=== PATIENT | male | born 1945 | race Caucasian/White ===

== ENCOUNTER → 2018-09-23 | Day surgery (SDC) | payer MEDICARE, BC ==
[2018-09-16 13:00] LABS: BASOPHILS # (AUTO) 0.1 (0.0-0.1); BASOPHILS % 0.7 % (0.0-1.0); EOSINOPHILS # (AUTO) 0.2 (0.0-0.4); EOSINOPHILS % 2.7 % (0.0-6.0); HEMATOCRIT 43.4 % (38.2-49.6); HEMOGLOBIN 14.3 g/dL (14.0-18.0); LYMPHOCYTES # (AUTO) 1.9 (1.0-3.2); LYMPHOCYTES % 22.4 % (18.0-39.1); MEAN CORPUSCULAR HEMOGLOBIN 29.6 pg (28-32); MEAN CORPUSCULAR HGB CONC 32.9 g/dL (31-35); MEAN CORPUSCULAR VOLUME 89.9 fL (81-99); MONOCYTES # (AUTO) 0.9 (0.2-0.8); NEUTROPHILS # (AUTO) 5.4 (2.1-6.9); NEUTROPHILS % 63.5 % (38.7-80.0); PLATELET COUNT 216 x10e3/uL (140-360); RED BLOOD COUNT 4.83 x10e6/uL (4.3-5.7); RED CELL DISTRIBUTION WIDTH 12.2 % (11.7-14.4)
[2018-09-16 13:09] LABS: ANION GAP 13.1 mmol/L (8-16); BLOOD UREA NITROGEN 21 mg/dL (7-26); BUN/CREATININE RATIO 18 (6-25); CALCIUM 9.1 mg/dL (8.4-10.2); CARBON DIOXIDE 27 mmol/L (22-29); CHLORIDE 102 mmol/L (98-107); CREATININE, SERUM 1.18 mg/dL (0.72-1.25); EST GLOMERULAR FILTRATION RATE > 60 ML/MIN (60-); GLUCOSE 89 mg/dL (74-118); POTASSIUM 4.1 mmol/L (3.5-5.1); SODIUM 138 mmol/L (136-145)
--- NOTE | 2018-09-16 13:39 | Diagnostic Imaging Report ---
EXAMINATION: CHEST 2 VIEWS INDICATION: Preop for cysto surgery COMPARISON: None FINDINGS: TUBES and LINES: Left anterior chest dual lead cardiac device. LUNGS: Lungs are well inflated. Lungs are clear. There is no evidence of pneumonia or pulmonary edema. PLEURA: No pleural effusion or pneumothorax. HEART AND MEDIASTINUM: The cardiomediastinal silhouette is unremarkable. BONES AND SOFT TISSUES: No acute osseous lesion. Soft tissues are unremarkable. UPPER ABDOMEN: No free air under the diaphragm. IMPRESSION: No acute thoracic abnormality. Signed by: Dr. Blayne Strange M.D. on 09/16/2018 1:36 PM
[~2018-09-23] MED LIST: ADVAIR 100-501 EACH; ASCORBIC ACID500 MG PO; AZELASTINE137 MCG/0.; BACITRACIN 50,000 UNIT VIAL ONE; BUPIVACAINE 0.5%/EPI 30 ML SDV INJ ONE; CEFTRIAXONE SOD 1 GM VIAL ONE; DEXAMETHASONE SOD PHOS INJ 4 MG/ML VIAL ONE; FENTANYL CITRATE/PF 100MCG/2 ML INJ ONE; HYDROCODONE/APAP 5MG-325MG TAB ONE; LIDOCAINE HCL 2% LOCAL INJ 5 ML SDV VIAL INJ ONE; METOPROLOL SUCC50 MG PO; MIDAZOLAM HCL 2 MG/2 ML VIAL ONE; MORPHINE SULFATE 2 MG/ML SYR ONE; MULTIVITAMINS1 EAC6; ONDANSETRON HCL INJ 2 MG/ML VIAL ONE; PANTOPRAZOLE SO40 MG PO; PRADAXA150 MG; PROPAFENONE HC325 MG PO; PROPOFOL IV EMULSION 10 MG/ML 20 ML VIAL ONE; SEVOFLURANE INHAL SOLN 250 ML PEN BTL ONE; ZANTAC150 MG; ZETIA10 MG PO; ZOLPIDEM TARTRA10 MG PO; ZYRTEC10 M3
--- OUTSIDE RECORDS SUMMARY | 2018-09-23 11:11 | XMS REPORT | Continuity of Care Document ---
Author Author [facility] Interface Address Unknown Phone Unavailable Problems Problem Status Onset Date Classification Date Reported Comments Source COLON CANCER SCREENING Active 03/06/2017 [facility] Atrial fibrillation Resolved Problem 05/10/2017 [facility] [place] (<span ID="[id number]">Confirmed</span>) Resolved Problem 05/10/2017 [facility] Heartburn symptom Active Problem 05/10/2017 [facility] Inguinal hernia Active Problem 05/10/2017 [facility] Prostate cancer<sup>1</sup> Resolved Problem 05/10/20172002 [facility] Medications Medication Details Route Status Patient Instructions Ordering Provider Order Date Source Allergies, Adverse Reactions, Alerts Substance Category Reaction Severity Reaction type Status Date Reported Comments Source Immunizations Immunization Date Given Site Status Last Updated Comments Source Results Order Name Results Value Reference Range Date Interpretation Comments Source Vital Signs Vital Sign Value Date Comments Source Encounters Location Location Details Encounter Type Encounter Number Reason For Visit Attending Provider ADM Date DC Date Status Source [facility] Bed[facility] Outpatient [id number] Farida Estradaoff 05/07/2017 05/07/2017 [facility] Procedures Procedure Code Date Perfomer Comments Source Open repair of inguinal hernia<sup>1</sup> [id number] 12/24/2016 OPEN LEFT INGUINAL HERNIA REPAIR WITH MESH [facility] Cataract extraction and insertion of intraocular lens [id number] [facility] Hand reconstruction [id number] [facility] Hydrocelectomy [id number] [facility] Inguinal hernioplasty<sup>2</sup> [id number] right [facility] Prostatectomy [id number] [facility] Vitrectomy [id number] [facility]
--- OUTSIDE RECORDS SUMMARY | 2018-09-23 11:11 | XMS REPORT | Clinical Summary ---
Author Author RADHA [employer] [facility] Organization [facility] Address Unknown Phone Unavailable Care Team Providers Care Flute Teacher Name Role Phone Sharpless PCP Allergies No Known Allergies Medications End Date Status Medication Sig Dispensed Refills Start Date Active ezetimibe-simvastatin Take 1 tablet 0 (VYTORIN) 10-40 mg per by mouth tablet nightly. Active propafenone (RYTHMOL) 150 Take 150 mg 0 MG tablet by mouth every 8 (eight) hours. Active azelastine (ASTELIN) 137 1 spray by 0 mcg (0.1 %) nasal spray Nasal route 2 (two) times daily Use in each nostril as directed . Active pantoprazole (PROTONIX) Take 40 mg by 0 40 MG tablet mouth daily. Active fluticasone (FLOVENT Inhale 1 puff 0 DISKUS) 50 mcg/actuation by mouth via diskus inhaler inhaler 2 (two) times daily. Active zolpidem (AMBIEN) 10 mg Take 10 mg by 0 tablet mouth every night as needed for Insomnia. Active ranitidine (ZANTAC) 150 Take 150 mg 0 MG capsule by mouth 2 (two) times daily. Active cetirizine (ZYRTEC) 10 MG Take 10 mg by 0 tablet mouth daily. Active ascorbic acid, vitamin C, Take 1,000 mg 0 (VITAMIN C) 1000 MG by mouth tablet daily. Active vitamin A 53294 UNIT Take 10,000 0 capsule Units by mouth daily. Active multivitamin capsule Take 1 0 capsule by mouth daily. Active metoprolol (TOPROL-XL) 50 Take 1 tablet 30 tablet 0 03/23/201 MG 24 hr tablet (50 mg total) 8 by mouth daily. Active rivaroxaban (XARELTO) 20 Take 1 tablet 30 tablet 0 03/25/201 mg Tab tablet (20 mg total) 8 by mouth daily with dinner Start on 01/31. Active acetaminophen-codeine Take 1 tablet 20 tablet 0 (TYLENOL #3) 300-30 mg by mouth 8 per tablet every 6 (six) hours as needed for Pain. Max Daily Amount: 4 tablets 01/29/2018 Discontinued metoprolol (TOPROL-XL) 25 Take 25 mg by 0 MG 24 hr tablet mouth daily. Active Problems Problem Noted Date Symptomatic sinus bradycardia 01/27/2018 Encounters Care Team Description Date Type Specialty Mago Madrigal MD Severe sinus bradycardia 03/02/2018 Hospital Encounter Mago Madrigal MD Severe sinus bradycardia (Primary Dx) 03/02/2018 Outside Orders Mago Madrigal MD PACEMAKER GENERATOR - INSERTION W/ EXISTING LEAD (SINGLE) 01/29/2018 Surgery Scottie Moore MD 01/29/2018 Anesthesia Event Floresita Muniz MD Yoon, Alyssa Hyunna, MD Symptomatic sinus bradycardia (Primary Dx); Intermittent lightheadedness; Sinus pause 01/27/2018 Hospital Cardiology - Encounter 01/29/2018 01/27/2018 Orders Only General Internal Medicine after 09/22/2017 Social History Date Tobacco Use Types Packs/Day Years Used Former Smoker Smokeless Tobacco: Never Used Alcohol Use Drinks/Week oz/Week Comments No Sex Assigned at Date Recorded Not on file Industry Job Start Date Occupation Not on file Not on file Not on file Travel End Travel History Travel Start No recent travel history available. Last Filed Vital Signs Time Taken Vital Sign Reading 01/29/2018 10:11 AM CDT Blood Pressure 128/59 01/29/2018 11:06 AM CDT Pulse 64 01/29/2018 5:56 AM CDT Temperature 35.9 C (96.6 F) 01/29/2018 11:06 AM CDT Respiratory Rate 18 01/29/2018 11:06 AM CDT Oxygen Saturation 96% 01/28/2018 8:27 AM CDT Inhaled Oxygen 21% Concentration 01/27/2018 6:49 PM CDT Weight 82.1 kg (181 lb) 01/27/2018 6:49 PM CDT Height 175.3 cm (5' 9") 01/27/2018 6:49 PM CDT Body Mass Index 26.73 Plan of Treatment Not on file Implants Device Identifier Shelf Expiration Date Model / Serial / Lot Implanted Type Area Manufactur er 10/09/2019 [id number] / [id number] / Lead Pacemkr Capsur Novus 52x1 Pacemaker N/A: Heart [employer]: [id number] - [id number] Lead CARD Implanted: Qty: 1 on 01/29/2018 by RHY:Mago Ruvalcaba MD E MGT 10/23/2019 [id number] / [id number] / Lead Pacemkr Capsur Novus 45x1 Pacemaker N/A: Heart [employer]: [id number] - [id number] Lead CARD Implanted: Qty: 1 on 01/29/2018 by RHY:Mago Ruvalcaba MD E MGT 03/06/2019 [id number] / [id number] / Jenna Xt Dr Yani Surescan Pacemakers N/A: Chest [employer] Implanted: Qty: 1 on 01/29/2018 by Mago Madrigal MD Procedures Comments Procedure Name Priority Date/Time Associated Diagnosis ARRYTHMIA IMPLANT REPORT 06/30/2018 - SCAN 8:31 AM CDT XR CHEST 2 VIEWS Routine 03/02/2018 Severe sinus bradycardia 11:57 AM CDT CARDIAC CATH REPORT - 02/03/2018 SCAN 8:30 PM CDT ARRYTHMIA IMPLANT REPORT 02/01/2018 - SCAN 1:50 PM CDT RHYTHM STRIP - SCAN 02/01/2018 1:50 PM CDT XR CHEST 1 VIEW STAT 01/29/2018 PORTABLE/BEDSIDE 10:31 AM CDT PACEMAKER GENERATOR - 01/29/2018 chest pain INSERTION W/ EXISTING 7:30 AM CDT LEAD (SINGLE) CBC W/PLT COUNT & AUTO Routine 01/29/2018 DIFFERENTIAL 4:59 AM CDT MAGNESIUM Routine 01/29/2018 4:59 AM CDT CBC W/PLT COUNT & AUTO Routine 01/29/2018 DIFFERENTIAL 4:59 AM CDT BASIC METABOLIC PANEL (7) Routine 01/29/2018 4:59 AM CDT CBC W/PLT COUNT & AUTO Routine 01/28/2018 DIFFERENTIAL 10:19 AM CDT CBC W/PLT COUNT & AUTO Routine 01/28/2018 DIFFERENTIAL 10:19 AM CDT BASIC METABOLIC PANEL (7) Routine 01/28/2018 10:19 AM CDT TSH/FREE T4 IF INDICATED Routine 01/28/2018 5:56 AM CDT MAGNESIUM Routine 01/28/2018 5:56 AM CDT ED ECG INTERPRETATION Routine 01/27/2018 10:08 PM CDT XR CHEST 1 VIEW STAT 01/27/2018 PORTABLE/BEDSIDE 9:04 PM CDT CBC W/PLT COUNT & AUTO STAT 01/27/2018 DIFFERENTIAL 8:40 PM CDT B-TYPE NATRIURETIC FACTOR STAT 01/27/2018 (BNP) 8:40 PM CDT PT/APTT STAT 01/27/2018 8:40 PM CDT CBC W/PLT COUNT & AUTO STAT 01/27/2018 DIFFERENTIAL 8:40 PM CDT TROPONIN I STAT 01/27/2018 8:40 PM CDT MAGNESIUM STAT 01/27/2018 8:40 PM CDT BASIC METABOLIC PANEL (7) STAT 01/27/2018 8:40 PM CDT ECG 12-LEAD Routine 01/27/2018 6:47 PM CDT Procedure Note - Interface, External Ris In - 01/27/2018 8:37 PM CDT Ventricula r Rate 59 BPM Atrial Rate 59 BPM P-R Interval 212 ms QRS Duration 92 ms Q-T Interval 406 ms QTC Calculatio n(Bazett) [address] -[address] 46 degrees Sinus bradycardi a with 1st degree A-V block Otherwise normal ECG No previous ECGs available ECG 12-LEAD STAT 01/27/2018 6:47 PM CDT after 09/22/2017 Results * ARRYTHMIA IMPLANT REPORT - SCAN (06/30/2018 8:31 AM CDT) Only the most recent of 2 results within the time period is included. Narrative Performed At * XR Chest 2 Views (03/02/2018 11:57 AM CDT) Narrative Performed At FINAL REPORT [facility] PA and Lateral views of the chest dated 03/02/2018 COMPARISON: January 29, 2018 Clinical information: R00.1 Comment:Heart is normal in size. AICD remains in place. Pulmonary vasculature is unremarkable. Lungs are clear. No pulmonary infiltrate or pleural effusion is present. Impression:No active cardiopulmonary disease or interval change. Signed: David Jeffrey MD Report Verified Date/Time:03/02/2018 12:23:24 Reading Location: [address] Radiology Reading Room Procedure Note Interface, External Ris In - 03/02/2018 12:25 PM CDT FINAL REPORT PA and Lateral views of the chest dated 03/02/2018 COMPARISON: January 29, 2018 Clinical information: R00.1 Comment: Heart is normal in size. AICD remains in place. Pulmonary vasculature is unremarkable. Lungs are clear. No pulmonary infiltrate or pleural effusion is present. Impression: No active cardiopulmonary disease or interval change. Signed: David Jeffrey MD Report Verified Date/Time: 03/02/2018 12:23:24 Reading Location: [address] Radiology Reading Room Performing Organization Address City/State/Zipcode Phone Number GE [facility]IS * CARDIAC CATH REPORT - SCAN (02/03/2018 8:30 PM CDT) Narrative Performed At * RHYTHM STRIP - SCAN (02/01/2018 1:50 PM CDT) Narrative Performed At * XR chest 1 view portable / bedside (01/29/2018 10:31 AM CDT) Only the most recent of 2 results within the time period is included. Narrative Performed At FINAL REPORT [facility] Chest one view compared to January 27 Discussion: Left chest pacemaker in place. Heart size normal. Lungs clear. No effusion or pneumothorax. Signed: Mago Quach MD Report Verified Date/Time:01/29/2018 10:43:51 Reading Location: [facility] Reading Room Procedure Note Interface, External Ris In - 01/29/2018 10:46 AM CDT FINAL REPORT Chest one view compared to January 27 Discussion: Left chest pacemaker in place. Heart size normal. Lungs clear. No effusion or pneumothorax. Signed: Mago Quach MD Report Verified Date/Time: 01/29/2018 10:43:51 Reading Location: [facility] Reading Room Performing Organization Address City/State/Zipcode Phone Number [facility] * CBC with platelet count + automated diff (01/29/2018 4:59 AM CDT) Only the most recent of 3 results within the time period is included. WBC 8.8 3.5 - 10.5 K/L [facility] RBC 5.22 4.63 - 6.08 M/L [facility] Hemoglobin 15.0 13.7 - 17.5 GM/DL [facility] Hematocrit 45.7 40.1 - 51.0 % [facility] MCV 87.5 79.0 - 92.2 fL [facility] MCH 28.7 25.7 - 32.2 pg [facility] MCHC 32.8 32.3 - 36.5 GM/DL [facility] RDW 11.9 11.6 - 14.4 % [facility] Platelets 221 150 - 450 K/CU MM [facility] MPV 10.4 9.4 - 12.4 fL [facility] nRBC 0 0 - 0 /100 WBC [facility] % Neutros 62 % [facility] % Lymphs 22 % [facility] % Monos 11 % [facility] % Eos 3 % [facility] % Baso 1 % [facility] # Neutros 5.48 (H) 1.78 - 5.38 K/L [facility] # Lymphs 1.98 1.32 - 3.57 K/L [facility] # Monos 1.01 (H) 0.30 - 0.82 K/L [facility] # Eos 0.26 0.04 - 0.54 K/L [facility] # Baso 0.05 0.01 - 0.08 K/L [facility] Immature 1 0 - 1 % [facility] Granulocytes-[facility] Specimen Blood - Arm, Right Performing Organization Address City/[facility] [place] [address] [phone] * Magnesium (01/29/2018 4:59 AM CDT) Only the most recent of 3 results within the time period is included. Magnesium 2.1 1.6 - 2.6 mg/dL [facility] Specimen Blood - Arm, Right Performing Organization Address City/[facility]/Zipcode Phone Number [address] [address] [phone] [place] [address] * Basic Metabolic Panel (01/29/2018 4:59 AM CDT) Only the most recent of 3 results within the time period is included. Sodium 138 136 - 145 meq/L [facility] Potassium 3.9 3.5 - 5.1 meq/L [facility] Chloride 107 98 - 107 meq/L [facility] CO2 21 (L) 22 - 29 meq/L [facility] BUN 15 7 - 21 mg/dL [facility] Creatinine 0.95 0.57 - 1.25 mg/dL [facility] Glucose 102 70 - 105 mg/dL [facility] Calcium 8.8 8.4 - 10.2 mg/dL [facility] EGFR 78Comment: ESTIMATED GFR IS mL/min/1.73 sq m [facility] NOT ACCURATE CREATININE [facility] CLEARANCE IN PREDICTING GLOMERULAR FILTRATION RATE. ESTIMATED GFR IS NOT APPLICABLE FOR DIALYSIS PATIENTS. Specimen Blood - Arm, Right Performing Organization Address City/[facility] Phone Number [address] * TSH/T4 if indicated (01/28/2018 5:56 AM CDT) TSH 2.05 0.35 - 4.94 uIU/mL [facility] Specimen Blood Performing Organization Address City/[facility] Phone Number [address] * ED ECG Interpretation (01/27/2018 10:08 PM CDT) Narrative Performed At Floresita Muniz MD 01/27/2018 10:08 PM ECG/EKG Interpretation Date/Time: 01/27/2018 6:47 PM Performed by: FLORESITA MUNIZ Authorized by: FLORESITA MUNIZ The ECG was interpreted by ED physician. This ECG was not compared with previous ECG(s).The ECG is interpreted as sinus bradycardia. Rate is bradycardic. Heart rate is 59 BPM. Abnormal conduction noted: 1st degree. ST segments normal. Clinical Impression: non-specific ECG and abnormal ECGECG reviewed and does not meet STEMI criteria. Patient tolerance: Patient tolerated the procedure well with no immediate complications * PT/PTT (01/27/2018 8:40 PM CDT) Protime 13.9 11.7 - 14.7 seconds [facility] INR 1.1 <=5.9 [facility] PTT 27.3 22.5 - 36.0 seconds [facility] Specimen Blood - Arm, Left Narrative Performed At RECOMMENDED COUMADIN/WARFARIN INR THERAPY RANGES [facility] STANDARD DOSE: 2.0 - 3.0 Includes: PROPHYLAXIS for venous thrombosis, [facility] systemic embolization; TREATMENT for venous thrombosis and/or pulmonary embolus. HIGH RISK: Target INR is 2.5-3.5 for patients with mechanical heart valves. Performing Organization Address [facility] [place] [address] [facility] * Troponin I (01/27/2018 8:40 PM CDT) Troponin I <0.01 0.00 - 0.03 ng/mL [facility] Specimen Blood - Arm, Left Narrative Performed At Troponin I (TnI) levels must be interpreted in the context of the presenting [facility] symptoms and the clinical findings. Elevated TnI levels indicate myocardial [facility] damage, but are not specific for ischemic heart disease. Elevated TnI levels are seen in patients with other cardiac conditions (including myocarditis and congestive heart failure), and slight TnI elevations occur in patients with other conditions, including sepsis, renal failure, acidosis, acute neurological disease, and persistent tachyarrhythmia. Performing Organization Address [facility] [place] [address] [facility] * B-type Natriuretic Factor (BNP) (01/27/2018 8:40 PM CDT) BNP 50 0 - 100 pg/mL [facility] Specimen Blood - Arm, Left Performing Organization Address [facility] Cent[facility]ode Phone Number [address] [address] [facility] * ECG 12 lead (01/27/2018 6:47 PM CDT) Narrative Performed At Ventricular Rate 59 BPM [facility] Atrial Rate 59 BPM P-R Interval 212 ms QRS Duration 92 ms Q-T Interval 406 ms QTC Calculation(Bazett) [address] -[address] 46 degrees Sinus bradycardia with 1st degree A-V block Otherwise normal ECG No previous ECGs available Confirmed by MD Thomason Roberto ([id number]) on 01/28/2018 10:39:50 AM Procedure Note Interface, External Ris In - 01/28/2018 10:40 AM CDT Ventricular Rate 59 BPM Atrial Rate 59 BPM P-R Interval 212 ms QRS Duration 92 ms Q-T Interval 406 ms QTC Calculation(Bazett) [address] -[address] 46 degrees Sinus bradycardia with 1st degree A-V block Otherwise normal ECG No previous ECGs available Confirmed by MD Thomason Roberto ([id number]) on 01/28/2018 10:39:50 AM Performing Organization Address City/State/Zipcode Phone Number GE MUSE after 09/22/2017 Insurance Payer Benefit Subscriber ID Type Phone Address Plan / Group MEDICARE MEDICARE A xxxxxxxxxx Medicare B BLUE CROSS/BLUE SHIELD BCBS PPO xxxxxxxxxxxx PPO [phone] [address] [place] [address] CHOICE Advance Directives For more information, please contact: [facility] [address] [place] [address] Date Inactivated Comments Code Status Date Activated 01/29/2018 7:53 PM Full Code 01/28/2018 2:10 AM This code status was determined by: Patient
--- OUTSIDE RECORDS SUMMARY | 2018-09-23 11:11 | XMS REPORT | Summary of Care ---
Author Author [facility] Organization [facility] Address Unknown Phone Unavailable Encounter HQ Tung_hakeem(FIN) [id number] Date(s): 05/07/17 - 05/07/17 [facility] [address], [place] [address] [phone] Discharge Disposition: Home or Self Care Attending Physician: Farida Almendarez MD Referring Physician: Farida Almendarez MD Vital Signs No data available for this section Problem List Condition Effective Dates Status Health Status Informant Atrial Resolved fibrillation(Confirm ed) [place] (hard of Resolved hearing)(Confirmed) Heartburn Active symptom(Confirmed) Inguinal Active hernia(Confirmed) Prostate Resolved cancer(Confirmed)1 [id number] Allergies, Adverse Reactions, Alerts Substance Reaction Severity Status NKDA Active Medications No data available for this section Results No data available for this section Immunizations No data available for this section Procedures Procedure Date Related Diagnosis Body Site Open repair of inguinal hernia1 12/24/16 Cataract extraction and insertion of intraocular lens Hand reconstruction Hydrocelectomy Inguinal hernioplasty2 Prostatectomy Vitrectomy 1OPEN LEFT INGUINAL HERNIA REPAIR WITH MESH 2right Social History Social History Type Response Smoking Status Former smoker; Type: Cigarettes; Previous treatment: None; Ready to change: No; Concerns about tobacco use in household: No; Exposure to Tobacco Smoke None; Other Tobacco Frequency quit 1971; Cigarette Smoking Last 365 Days No; Reg Smoking Cessation Counseling No Assessment and Plan No data available for this section
--- OUTSIDE RECORDS SUMMARY | 2018-09-23 11:11 | XMS REPORT ---
Author Author [facility] Address Unknown Phone Unavailable Care Team Providers Care Sock Liner Name Role Phone Roel ESPOSITO Unavailable Unavailable KAMI REAGAN Unavailable Unavailable Problems This patient has no known problems. Allergies, Adverse Reactions, Alerts This patient has no known allergies or adverse reactions. Medications This patient has no known medications. Results Test Description Test Time Test Comments Text Results Atomic Results Result Comments CHEST 2 VIEWS 2018-09-16 13:35:00 [place] [id number] Patient Name: DAVID STANLEY JR MR #: [id number] : 1945 Age/Sex: 73/M Req #: [id number] Adm Physician: Ordered by: TISH ESPOSITO MD Report #: [id number] Location: OR Room/Bed: Procedure: [id number] DX/CHEST 2 VIEWS Exam Date: Exam Time: REPORT STATUS: Signed EXAMINATION: CHEST 2 VIEWS INDICATION: Preop for cysto surgery COMPARISON: None FINDINGS: TUBES and LINES: Left anterior chest dual lead cardiac device. LUNGS: Lungs are well inflated. Lungs are clear. There is no evidence of pneumonia or pulmonary edema. PLEURA: No pleural effusion or pneumothorax. HEART AND MEDIASTINUM: The cardiomediastinal silhouette is unremarkable. BONES AND SOFT TISSUES: No acute osseous lesion. Soft tissues are unremarkable. UPPER ABDOMEN: No free air under the diaphragm. IMPRESSION: No acute thoracic abnormality. Signed by: Dr. Blayne Strange M.D. on 09/16/2018 1:36 PM Dictated By: BLAYNE STRANGE MD, MD 35 Transcribed By: WILBUR on 09/16/181335 COPY TO: TISH ESPOSITO MD RAD, CHEST, 2 VIEWS 2018-03-02 12:23:00 Reason for Exam:->R00.1 FINAL REPORT PA and Lateral views of the chest dated 03/02/2018 COMPARISON: January 29, 2018 Clinical information: R00.1 Comment: Heart is normal in size. AICD remains in place. Pulmonary vasculature is unremarkable. Lungs are clear. No pulmonary infiltrate or pleural effusion is present. Impression: No active cardiopulmonary disease or interval change. Signed: David Jeffrey Verified Date/Time: 03/02/2018 12:23:24 Reading Location: [address] Radiology Reading Room , CHEST, 1 VIEW, NON DEPT 2018-01-29 10:43:00 Reason for exam:->s/p Pacemaker implantShould this be performed at the bedside?->Yes FINAL REPORT Chest one view compared to January 27 Discussion: Left chest pacemaker in place. Heart size normal. Lungs clear. No effusion or pneumothorax. Signed: Mago Ochoa Verified Date/Time: 01/29/2018 10:43:51 Reading Location: [facility] Radiology Reading Room ESIUM 2018-01-29 06:52:00 MAGNESIUM (BEAKER) (test hbfy=262) 2.1 mg/dL 1.6-2.6 BASIC METABOLIC [id number] 06:52:00* Test Item Value Reference Range Comments SODIUM (BEAKER) (test pfiw=777) 138 meq/L 136-145 POTASSIUM (BEAKER) (test jvla=887) 3.9 meq/L 3.5-5.1 CHLORIDE (BEAKER) (test nyxl=358) 107 meq/L 98-107 CO2 (BEAKER) (test tcnw=242) 21 meq/L 22-29 BLOOD UREA NITROGEN (BEAKER) (test wlfo=747) 15 mg/dL 7-21 CREATININE (BEAKER) (test jcpi=558) 0.95 mg/dL 0.57-1.25 GLUCOSE RANDOM (BEAKER) (test vrwm=112) 102 mg/dL 70-105 CALCIUM (BEAKER) (test gthk=239) 8.8 mg/dL 8.4-10.2 EGFR (BEAKER) (test pixq=4718) 78 mL/min/1.73 sq m ESTIMATED GFR IS NOT ACCURATE CREATININE CLEARANCE IN PREDICTING GLOMERULAR FILTRATION RATE. ESTIMATED GFR IS NOT APPLICABLE FOR DIALYSIS PATIENTS. CBC W/PLT COUNT & AUTO [id number] 05:52:00* Test Item Value Reference Range Comments WHITE BLOOD CELL COUNT (BEAKER) (test gbvx=088) 8.8 K/ L 3.5-10.5 RED BLOOD CELL COUNT (BEAKER) (test kusw=970) 5.22 M/ L 4.63-6.08 HEMOGLOBIN (BEAKER) (test lyxi=705) 15.0 GM/DL 13.7-17.5 HEMATOCRIT (BEAKER) (test ylnr=636) 45.7 % 40.1-51.0 MEAN CORPUSCULAR VOLUME (BEAKER) (test ccrv=214) 87.5 fL 79.0-92.2 MEAN CORPUSCULAR HEMOGLOBIN (BEAKER) (test jfus=463) 28.7 pg 25.7-32.2 MEAN CORPUSCULAR HEMOGLOBIN CONC (BEAKER) (test rwri=979) 32.8 GM/DL 32.3-36.5 RED CELL DISTRIBUTION WIDTH (BEAKER) (test tcwo=750) 11.9 % 11.6-14.4 PLATELET COUNT (BEAKER) (test pcnv=285) 221 K/CU MM 150-450 MEAN PLATELET VOLUME (BEAKER) (test wcgi=425) 10.4 fL 9.4-12.4 NUCLEATED RED BLOOD CELLS (BEAKER) (test mwxr=031) 0 /100 WBC 0-0 NEUTROPHILS RELATIVE PERCENT (BEAKER) (test tcgp=518) 62 % LYMPHOCYTES RELATIVE PERCENT (BEAKER) (test pqmw=783) 22 % MONOCYTES RELATIVE PERCENT (BEAKER) (test foid=180) 11 % EOSINOPHILS RELATIVE PERCENT (BEAKER) (test ulro=170) 3 % BASOPHILS RELATIVE PERCENT (BEAKER) (test gqfr=583) 1 % NEUTROPHILS ABSOLUTE COUNT (BEAKER) (test nuvl=990) 5.48 K/ L 1.78-5.38 LYMPHOCYTES ABSOLUTE COUNT (BEAKER) (test lwco=744) 1.98 K/ L 1.32-3.57 MONOCYTES ABSOLUTE COUNT (BEAKER) (test gsdd=211) 1.01 K/ L 0.30-0.82 EOSINOPHILS ABSOLUTE COUNT (BEAKER) (test jvfj=132) 0.26 K/ L 0.04-0.54 BASOPHILS ABSOLUTE COUNT (BEAKER) (test xzmy=051) 0.05 K/ L 0.01-0.08 IMMATURE GRANULOCYTES-RELATIVE PERCENT (BEAKER) (test yetb=6429) 1 % 0-1 BASIC METABOLIC [id number] 11:01:00* Test Item Value Reference Range Comments SODIUM (BEAKER) (test grqy=733) 139 meq/L 136-145 POTASSIUM (BEAKER) (test kzxq=609) 4.5 meq/L 3.5-5.1 CHLORIDE (BEAKER) (test wlco=817) 106 meq/L 98-107 CO2 (BEAKER) (test ijll=760) 25 meq/L 22-29 BLOOD UREA NITROGEN (BEAKER) (test aoqm=157) 17 mg/dL 7-21 CREATININE (BEAKER) (test rfbj=020) 0.98 mg/dL 0.57-1.25 GLUCOSE RANDOM (BEAKER) (test gknm=171) 92 mg/dL 70-105 CALCIUM (BEAKER) (test gtxq=734) 8.6 mg/dL 8.4-10.2 EGFR (BEAKER) (test zkhk=1635) mL/min/1.73 sq m INSUFFICIENT CLINICAL DATA TO CALCULATE ESTIMATED GFR. CBC W/PLT COUNT & AUTO [id number] 10:36:00* Test Item Value Reference Range Comments WHITE BLOOD CELL COUNT (BEAKER) (test xrag=810) 6.4 K/ L 3.5-10.5 RED BLOOD CELL COUNT (BEAKER) (test ottt=449) 4.62 M/ L 4.63-6.08 HEMOGLOBIN (BEAKER) (test fmlr=132) 13.5 GM/DL 13.7-17.5 HEMATOCRIT (BEAKER) (test igtx=588) 41.2 % 40.1-51.0 MEAN CORPUSCULAR VOLUME (BEAKER) (test tzgs=052) 89.2 fL 79.0-92.2 MEAN CORPUSCULAR HEMOGLOBIN (BEAKER) (test rnxb=324) 29.2 pg 25.7-32.2 MEAN CORPUSCULAR HEMOGLOBIN CONC (BEAKER) (test oppv=172) 32.8 GM/DL 32.3-36.5 RED CELL DISTRIBUTION WIDTH (BEAKER) (test tboj=889) 12.1 % 11.6-14.4 PLATELET COUNT (BEAKER) (test ureq=841) 193 K/CU MM 150-450 MEAN PLATELET VOLUME (BEAKER) (test ialy=490) 10.3 fL 9.4-12.4 NUCLEATED RED BLOOD CELLS (BEAKER) (test btdg=377) 0 /100 WBC 0-0 NEUTROPHILS RELATIVE PERCENT (BEAKER) (test ceto=466) 64 % LYMPHOCYTES RELATIVE PERCENT (BEAKER) (test lqpf=187) 21 % MONOCYTES RELATIVE PERCENT (BEAKER) (test wayf=460) 11 % EOSINOPHILS RELATIVE PERCENT (BEAKER) (test abzz=325) 3 % BASOPHILS RELATIVE PERCENT (BEAKER) (test hovl=191) 1 % NEUTROPHILS ABSOLUTE COUNT (BEAKER) (test qciz=227) 4.10 K/ L 1.78-5.38 LYMPHOCYTES ABSOLUTE COUNT (BEAKER) (test ektm=279) 1.34 K/ L 1.32-3.57 MONOCYTES ABSOLUTE COUNT (BEAKER) (test wxpf=174) 0.68 K/ L 0.30-0.82 EOSINOPHILS ABSOLUTE COUNT (BEAKER) (test romv=036) 0.22 K/ L 0.04-0.54 BASOPHILS ABSOLUTE COUNT (BEAKER) (test ihui=399) 0.05 K/ L 0.01-0.08 IMMATURE GRANULOCYTES-RELATIVE PERCENT (BEAKER) (test xwec=3705) 1 % 0-1 TSH/FREE T4 IF [id number] 08:05:00* Test Item Value Reference Range Comments THYROID STIMULATING HORMONE (BEAKER) (test kzuy=689) 2.05 uIU/mL 0.35-4.94 [id number] 07:54:00* Test Item Value Reference Range Comments MAGNESIUM (BEAKER) (test ihwb=462) 3.6 mg/dL 1.6-2.6 Specimen markedly hemolyzed TROPONIN [id number] 21:19:00* Test Item Value Reference Range Comments TROPONIN I (BEAKER) (test xejt=318) < ng/mL 0.00-0.03 Troponin I (TnI) levels must be interpreted in the context of the presenting sym ptoms and the clinical findings. Elevated TnI levels indicate myocardial damage, but are not specific for ischemic heart disease. Elevated TnI levels are seen in patients with other cardiac conditions (including myocarditis and congestive h eart failure), and slight TnI elevations occur in patients with other conditions , including sepsis, renal failure, acidosis, acute neurological disease, and per sistent tachyarrhythmia.B-TYPE NATRIURETIC FACTOR (BNP)2018-01-27 21:18:00* Test Item Value Reference Range Comments B-TYPE NATRIURETIC PEPTIDE (BEAKER) (test feer=263) 50 pg/mL 0-100 RAD, CHEST, 1 VIEW, NON [id number] 21:15:00Reason for exam:->BRADYCARDIA FINAL REPORT INDICATION: BRADYCARDIA COMPARISON: None NGA HNIQUE: Single frontal view of the chest. FINDINGS: Lungs and pleura: Clear lung s. No effusion.Heart and mediastinum: Normal heart size. No hilar adenopathy. No rmal aortic contours.Osseous structures: No acute abnormality.Other: None. IMPR ESSION: No acute intrathoracic abnormality. Signed: JR Segal Robert MDR eport Verified Date/Time: 01/27/2018 21:15:53 Reading Location: [facility] B1 C013Y CT Body Reading Room Electronically signed by: ANNABELLA SEGAL on 2017 09:15 PM BASIC METABOLIC [id number] 21:12:00* Test Item Value Reference Range Comments SODIUM (BEAKER) (test dayy=196) 140 meq/L 136-145 POTASSIUM (BEAKER) (test zytk=044) 4.3 meq/L 3.5-5.1 CHLORIDE (BEAKER) (test tfry=756) 106 meq/L 98-107 CO2 (BEAKER) (test dnrk=603) 25 meq/L 22-29 BLOOD UREA NITROGEN (BEAKER) (test rrvi=486) 22 mg/dL 7-21 CREATININE (BEAKER) (test ikuq=548) 1.11 mg/dL 0.57-1.25 GLUCOSE RANDOM (BEAKER) (test wkga=844) 98 mg/dL 70-105 CALCIUM (BEAKER) (test dbxh=628) 9.1 mg/dL 8.4-10.2 EGFR (BEAKER) (test uolj=3674) mL/min/1.73 sq m INSUFFICIENT CLINICAL DATA TO CALCULATE ESTIMATED GFR. [id number] 21:11:00* Test Item Value Reference Range Comments MAGNESIUM (BEAKER) (test xqot=117) 2.4 mg/dL 1.6-2.6 [id number] 21:04:00* Test Item Value Reference Range Comments PROTIME (BEAKER) (test gtht=643) 13.9 seconds 11.7-14.7 INR (BEAKER) (test ttns=094) 1.1 <=5.9 PARTIAL THROMBOPLASTIN TIME (BEAKER) (test vwlr=150) 27.3 seconds 22.5-36.0 RECOMMENDED COUMADIN/WARFARIN INR THERAPY RANGESSTANDARD DOSE: 2.0 - 3.0 Inclu skip: PROPHYLAXIS for venous thrombosis, systemic embolization; TREATMENT for jamil ous thrombosis and/or pulmonary embolus.HIGH RISK: Target INR is 2.5-3.5 for pat ients with mechanical heart valves.CBC W/PLT COUNT & AUTO [id number] 20:55:00* Test Item Value Reference Range Comments WHITE BLOOD CELL COUNT (BEAKER) (test eswb=515) 7.3 K/ L 3.5-10.5 RED BLOOD CELL COUNT (BEAKER) (test kyul=775) 4.82 M/ L 4.63-6.08 HEMOGLOBIN (BEAKER) (test ipty=655) 14.1 GM/DL 13.7-17.5 HEMATOCRIT (BEAKER) (test setb=853) 43.5 % 40.1-51.0 MEAN CORPUSCULAR VOLUME (BEAKER) (test mhda=299) 90.2 fL 79.0-92.2 MEAN CORPUSCULAR HEMOGLOBIN (BEAKER) (test wejt=293) 29.3 pg 25.7-32.2 MEAN CORPUSCULAR HEMOGLOBIN CONC (BEAKER) (test vvud=416) 32.4 GM/DL 32.3-36.5 RED CELL DISTRIBUTION WIDTH (BEAKER) (test zutq=528) 12.1 % 11.6-14.4 PLATELET COUNT (BEAKER) (test wqor=001) 205 K/CU MM 150-450 MEAN PLATELET VOLUME (BEAKER) (test mvyw=901) 9.8 fL 9.4-12.4 NUCLEATED RED BLOOD CELLS (BEAKER) (test ehtq=628) 0 /100 WBC 0-0 NEUTROPHILS RELATIVE PERCENT (BEAKER) (test hlfj=251) 55 % LYMPHOCYTES RELATIVE PERCENT (BEAKER) (test mwoq=812) 27 % MONOCYTES RELATIVE PERCENT (BEAKER) (test ocds=788) 11 % EOSINOPHILS RELATIVE PERCENT (BEAKER) (test vifr=456) 5 % BASOPHILS RELATIVE PERCENT (BEAKER) (test jrnj=684) 1 % NEUTROPHILS ABSOLUTE COUNT (BEAKER) (test ygtj=504) 4.05 K/ L 1.78-5.38 LYMPHOCYTES ABSOLUTE COUNT (BEAKER) (test fdun=205) 2.00 K/ L 1.32-3.57 MONOCYTES ABSOLUTE COUNT (BEAKER) (test snrr=803) 0.83 K/ L 0.30-0.82 EOSINOPHILS ABSOLUTE COUNT (BEAKER) (test skcy=867) 0.34 K/ L 0.04-0.54 BASOPHILS ABSOLUTE COUNT (BEAKER) (test wdqt=130) 0.06 K/ L 0.01-0.08 IMMATURE GRANULOCYTES-RELATIVE PERCENT (BEAKER) (test mbsj=8651) 1 % 0-1
[2018-09-23 17:35] VITALS: BP 164/87
--- NOTE | 2018-10-26 15:33 | Operative Report ---
DATE OF PROCEDURE: September 23, 2018 PREOPERATIVE DIAGNOSIS: Post-prostatectomy incontinence. POSTOP DIAGNOSIS: Post-prostatectomy incontinence. OPERATION PERFORMED: Insertion of artificial urinary sphincter. ANESTHESIA: General anesthesia. ESTIMATED BLOOD LOSS: Minimal. INDICATIONS: Mr. 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 This has failed conservative measures. He now presents for definitive surgical management of this problem. PROCEDURE IN DETAIL: The patient was brought into the operative room and placed in supine position and after administration of general anesthesia was placed in the dorsal lithotomy position and prepped and draped in the usual sterile fashion. A Zaldivar catheter was placed and the balloon inflated. An incision was made in the perineum between the posterior scrotum and the anus. Dissection was carried out through the perineum until the bulbospongiosus muscle was encountered. This was carefully dissected from the surrounding structures as was the enclosed bulbar urethra. Once it was circumferentially dissected, it was measured and found to be approximately 4.5 cm in circumference. A similarly sized cuff was therefore placed surrounding the bulbar urethra and the bulbospongiosus muscle. The tubing was allowed to exit the scrotum on the patient's right side and headed to the patient's right groin. A separate horizontal incision was made in the right groin at this time. Dissection was carried out through the layers of the abdomen. The fascia was incised horizontally, and a subrectus pouch was created. The reservoir of the balloon was placed in this location and filled with approximately 23 mL of fluid. The tubing was allowed to come through a separate stab incision inferior to the horizontal incision. The horizontal incision was closed using running Vicryl suture. The previously placed cuff tubing was brought up to the right groin in the same location. A subdartos pocket was created, and the pump was placed in this location without difficulty. Copious lidocaine was placed around the pump and in and around the tissues involving the cuff and the right groin. The device was cycled and noted to function well. The Zaldivar catheter was removed. Prior to placing the cuff, the urethra was instilled with antibiotic solution to ensure that there was no leakage, and none was noted. Once adequate hemostasis was secured, both the right groin and the perineal incisions were closed in layers, the skin being closed with a running subcuticular stitch. Both wounds were then cleaned and dried and covered with Mastisol, Steri-Strips and a Tegaderm dressing. Patient was returned to the supine position, and anesthesia was reversed. He was transferred to a bed and taken to the postanesthesia care unit in good condition. Of note, the needle and instrument count was correct at the conclusion of the case. Job#: [id number]
== END | disposition home or self-care (01) ==
LOC: OR 11:08
PROVIDERS: ATTEND Urology
DX: N39.3 Stress incontinence (female) (male) (principal); Z90.79 Acquired absence of other genital organ(s); K44.9 Diaphragmatic hernia without obstruction or gangrene; K21.9 Gastro-esophageal reflux disease without esophagitis; H91.90 Unspecified hearing loss, unspecified ear; Z88.8 Allergy status to other drugs, medicaments and biological substances; Z01.810 Encounter for preprocedural cardiovascular examination; Z01.812 Encounter for preprocedural laboratory examination; Z01.818 Encounter for other preprocedural examination; Z79.02 Long term (current) use of antithrombotics/antiplatelets; Z95.0 Presence of cardiac pacemaker; Z85.46 Personal history of malignant neoplasm of prostate
CPT/HCPCS: 36415; 53445; 71046; 80048; 85025; 93005; C1815 ×3; J0696; J1100; J2001; J2250; J2270; J2405; J2704